=== PATIENT | male | born 1945 | race Caucasian/White ===

== ENCOUNTER → 2018-03-29 | Outpatient (CLI) | payer MEDICARE, OTHER ==
[~2018-03-29] MED LIST: ASPIRIN 81M81 MG/TA2 PO; BACTRIM DS 8001 TAB PO; FERROUS SU325 MG/TAB PO; GLUCOPHAGE1000 MG PO; PRAVACHOL 20MG20 MG PO; ZESTRIL 20MG TA20 MG PO
== END ==
LOC: COL.RAD 07:30
DX: Z13.6 Encounter for screening for cardiovascular disorders (principal)